=== PATIENT | female | born 1995 | race Caucasian/White ===

== ENCOUNTER 2017-02-10 19:35 | Outpatient (CLI) | payer OTHER ==
[~2017-02-10 19:35] MED LIST: BACTRIM,SEPT1 TABLET PO; CONCERTA36 MG PO; TORADOL10 MG PO
[2017-02-10 20:19] VITALS: BP 116/57
[2017-02-10 20:57] LABS: ADD MIUA? YES; BILIRUBIN NEGATIVE; BLOOD NEGATIVE; COLOR YELLOW ((YELLOW)); GLUCOSE (STRIP) NEGATIVE; KETONES NEGATIVE; LEUKOCYTES MODERATE; NITRITE NEGATIVE; PROTEIN (STRIP) NEGATIVE; SPECIFIC GRAVITY 1.027 (1.000-1.030)
[2017-02-10 21:02] LABS: BACTERIA RARE /HPF; CALCIUM OXALATE CRYSTALS 3+ /HPF; EPITHELIAL CELLS RARE /HPF; MUCUS 2+ /LPF; UCUL ADDED? NO
== END 2017-02-10 20:20 | disposition home or self-care (01) ==
LOC: LDRP-OP 19:35 → 2WEST 19:38
PROVIDERS: Midwife
DX: O26.892 Other specified pregnancy related conditions, second trimester (principal); R10.9 Unspecified abdominal pain; O99.212 Obesity complicating pregnancy, second trimester; E66.9 Obesity, unspecified; Z68.41 Body mass index [BMI] 40.0-44.9, adult; Z3A.24 24 weeks gestation of pregnancy; Z87.891 Personal history of nicotine dependence
CPT/HCPCS: 59025; 81003; G0378

== ENCOUNTER 2017-02-28 01:37 | Outpatient (CLI) | payer OTHER ==
[~2017-02-28] VITALS: Ht 171.4 cm; Wt 114.1 kg
[2017-02-28 02:04] VITALS: BP 121/56
[2017-02-28 02:48] LABS: ADD MIUA? YES; BILIRUBIN NEGATIVE; BLOOD SMALL; COLOR YELLOW ((YELLOW)); GLUCOSE (STRIP) NEGATIVE; KETONES NEGATIVE; LEUKOCYTES MODERATE; NITRITE NEGATIVE; PROTEIN (STRIP) NEGATIVE; SPECIFIC GRAVITY 1.025 (1.000-1.030); UROBILINOGEN 0.2 MG/DL (0.2-1.0)
[2017-02-28 03:03] LABS: BACTERIA NONE SEEN /HPF; EPITHELIAL CELLS 1+ /HPF; MUCUS 2+ /LPF; RED BLOOD CELLS 0-5 /HPF (0-5)
[2017-02-28 03:06] VITALS: BP 93/46
[2017-02-28 04:12] VITALS: BP 102/50
[2017-02-28 04:20] LABS: EOSINOPHIL (%) 0.6 % (0-5); EOSINOPHIL COUNT 0.1 K/uL (0-0.3); IMMATURE GRANULOCYTE (%) 0.4 % (0.0-0.7); IMMATURE GRANULOCYTE COUNT 0.1 K/uL; INSTRUMENT ABS NEUTROPHIL CT 10.7 K/uL; LYMPHOCYTE COUNT 2.1 K/uL (1.0-2.8); MCH 28.5 PG (29.0-34.0); MCHC 32.7 G/DL (30.0-36.0); MCV 87.1 FL (83-99); MEAN PLAT.VOLUME 11.1 uM^3 (9.5-12.4); MONOCYTE COUNT 0.7 K/uL (0-0.8); NEUTROPHIL (%) 78.7 % (45-76); NEUTROPHIL COUNT 10.7 K/uL (1.8-6.4); PLATELET COUNT 240 K/uL (156-360); RBC DIS.WIDTH-CV 13.1 % (11.8-14.6); RBC DIS.WIDTH-SD 41.1 % (39-53); RED BLOOD COUNT 3.79 M/uL (3.80-5.20); WHITE BLOOD COUNT 13.6 K/uL (4.1-10.2)
== END 2017-02-28 05:30 | disposition home or self-care (01) ==
LOC: LDRP-OP 01:37 → 2WEST 01:38 → LDRP-OP 06-11 22:22
PROVIDERS: Nurse Practitioner
DX: O99.89 Other specified diseases and conditions complicating pregnancy, childbirth and the puerperium (principal); M54.9 Dorsalgia, unspecified; Z3A.00 Weeks of gestation of pregnancy not specified
CPT/HCPCS: 59025; 81003; 85025; G0378

== ENCOUNTER → 2017-03-11 | Outpatient (CLI) | payer OTHER ==
[~2017-03-11] VITALS: Ht 171.4 cm; Wt 114.0 kg
[2017-03-11 14:13] VITALS: BP 118/55
== END | disposition home or self-care (01) ==
LOC: IVINF 03-03 10:00
DX: Z31.82 Encounter for Rh incompatibility status (principal); Z3A.29 29 weeks gestation of pregnancy; Z67.41 Type O blood, Rh negative
CPT/HCPCS: 96372; J2790

== ENCOUNTER 2017-05-17 02:06 | Outpatient (CLI) | payer OTHER ==
[~2017-05-17] VITALS: Ht 167.6 cm; Wt 118.8 kg
[2017-05-17 02:29] VITALS: BP 128/62
[2017-05-17] MEDS ORDERED: TYLENOL EXTRA500 MG PO (02:46)
[2017-05-17 03:31] VITALS: BP 118/58
== END 2017-05-17 04:00 | disposition home or self-care (01) ==
LOC: LDRP-OP 02:06 → 2WEST 02:07 → LDRP-OP 06-11 05:43
DX: O36.8190 Decreased fetal movements, unspecified trimester, not applicable or unspecified (principal); Z3A.00 Weeks of gestation of pregnancy not specified
CPT/HCPCS: 59025; G0378

== ENCOUNTER 2017-05-21 13:41 | Outpatient (CLI) | payer OTHER ==
[~2017-05-21 13:41] MED LIST changes: +TYLENOL EXTRA500 MG PO
[2017-05-21 14:03] VITALS: BP 154/91
[2017-05-21 14:38] VITALS: BP 135/60
[2017-05-21 15:31] VITALS: BP 111/56
== END 2017-05-21 17:40 | disposition home or self-care (01) ==
LOC: LDRP-OP 13:41 → 2WEST 13:42 → LDRP-OP 06-11 05:56
DX: O47.1 False labor at or after 37 completed weeks of gestation (principal); Z3A.39 39 weeks gestation of pregnancy; Z87.891 Personal history of nicotine dependence
CPT/HCPCS: 59025; G0378

== ENCOUNTER 2017-05-22 16:15 | Outpatient (CLI) | payer OTHER ==
[~2017-05-22] VITALS: Ht 170.2 cm; Wt 125.4 kg
[2017-05-22 16:47] VITALS: BP 105/59
[2017-05-22 18:37] VITALS: BP 138/81
[2017-05-23] MEDS ORDERED: IBUPROFEN800 MG PO (11:06)
== END 2017-05-22 19:30 | disposition home or self-care (01) ==
LOC: LDRP-OP 16:15 → 2WEST 16:17 → LDRP-OP 06-11 18:31
DX: O47.1 False labor at or after 37 completed weeks of gestation (principal); Z3A.39 39 weeks gestation of pregnancy; O99.213 Obesity complicating pregnancy, third trimester; E66.9 Obesity, unspecified; Z68.41 Body mass index [BMI] 40.0-44.9, adult
CPT/HCPCS: 59025; G0378

== ENCOUNTER 2017-05-22 23:15 | Inpatient (IN) | payer OTHER ==
[~2017-05-22] VITALS: Ht 172.7 cm; Wt 125.0 kg
[2017-05-22 23:34] VITALS: BP 132/83
[2017-05-23] VITALS (31 sets, daily range): BP systolic 116–178; BP diastolic 58–104
[2017-05-23 01:59] LABS: EOSINOPHIL (%) 0.7 % (0-5); EOSINOPHIL COUNT 0.1 K/uL (0-0.3); HEMATOCRIT 32.7 % (36.0-46.0); IMMATURE GRANULOCYTE (%) 0.4 % (0.0-0.7); IMMATURE GRANULOCYTE COUNT 0.1 K/uL; INSTRUMENT ABS NEUTROPHIL CT 9.6 K/uL; LYMPHOCYTE COUNT 2.5 K/uL (1.0-2.8); MCH 27.6 PG (29.0-34.0); MCHC 32.7 G/DL (30.0-36.0); MCV 84.5 FL (83-99); MEAN PLAT.VOLUME 12.1 uM^3 (9.5-12.4); MONOCYTE (%) 8.2 % (3-12); MONOCYTE COUNT 1.1 K/uL (0-0.8); NEUTROPHIL (%) 71.6 % (45-76); NEUTROPHIL COUNT 9.6 K/uL (1.8-6.4); PLATELET COUNT 215 K/uL (156-360); RBC DIS.WIDTH-CV 16.7 % (11.8-14.6); RBC DIS.WIDTH-SD 50.7 % (39-53); RED BLOOD COUNT 3.87 M/uL (3.80-5.20); WHITE BLOOD COUNT 13.4 K/uL (4.1-10.2)
[2017-05-23] MEDS ORDERED: IBUPROFEN800 MG PO (11:06)
[2017-05-24 07:40] VITALS: BP 140/79
[2017-05-24 12:03] VITALS: BP 134/87
[2017-05-24 15:00] VITALS: BP 143/91
[2017-05-24 22:41] VITALS: BP 136/85
[2017-05-25 07:32] VITALS: BP 136/78
[2017-05-25 14:49] VITALS: BP 142/77
== END 2017-05-25 18:07 | disposition home or self-care (01) | DRG 775 ==
LOC: LDRP-OP 23:15 → 2WEST 23:16 → LDRP-OP 06-11 21:07
PROVIDERS: Midwife
DX: O70.0 First degree perineal laceration during delivery (principal); O69.81X0 Labor and delivery complicated by cord around neck, without compression, not applicable or unspecified; O69.82X0 Labor and delivery complicated by other cord entanglement, without compression, not applicable or unspecified; O99.344 Other mental disorders complicating childbirth; F32.9 Major depressive disorder, single episode, unspecified; F41.9 Anxiety disorder, unspecified; O99.214 Obesity complicating childbirth; E66.01 Morbid (severe) obesity due to excess calories; Z68.41 Body mass index [BMI] 40.0-44.9, adult; Z3A.39 39 weeks gestation of pregnancy; Z37.0 Single live birth
CPT/HCPCS: 59025; 85025; C1755; G0378; J0595; J3010; J7120

== ENCOUNTER 2017-08-11 22:00 | Emergency (ER) | payer OTHER ==
[~2017-08-11] VITALS: Ht 172.7 cm; Wt 117.1 kg
[~2017-08-11 22:00] MED LIST changes: +IBUPROFEN800 MG PO
[2017-08-12] MEDS ORDERED: MEDROL DOSEPAK4 MG PO (01:33)
[2017-08-12 01:45] VITALS: BP 142/73
== END 2017-08-12 01:57 | disposition home or self-care (01) ==
LOC: EME 22:00
DX: B00.2 Herpesviral gingivostomatitis and pharyngotonsillitis (principal); T36.0X5A Adverse effect of penicillins, initial encounter; F90.9 Attention-deficit hyperactivity disorder, unspecified type; Z87.891 Personal history of nicotine dependence
CPT/HCPCS: 99281; 99284; J7512

== ENCOUNTER 2017-08-21 20:44 | Emergency (ER) | payer OTHER ==
[~2017-08-21] VITALS: Ht 172.7 cm; Wt 116.3 kg
[~2017-08-21 20:44] MED LIST changes: +MEDROL DOSEPAK4 MG PO
[2017-08-21 21:30] LABS: HEMATOCRIT 35.7 % (36.0-46.0); MCH 26.7 PG (29.0-34.0); MCHC 31.7 G/DL (30.0-36.0); MCV 84.4 FL (83-99); MEAN PLAT.VOLUME 10.3 uM^3 (9.5-12.4); PLATELET COUNT 320 K/uL (156-360); RBC DIS.WIDTH-CV 15.1 % (11.8-14.6); RBC DIS.WIDTH-SD 46.2 % (39-53); RED BLOOD COUNT 4.23 M/uL (3.80-5.20); WHITE BLOOD COUNT 8.3 K/uL (4.1-10.2)
[2017-08-21 21:41] LABS: CHLORIDE 109 mEq/L (99-109); POTASSIUM 3.8 mEq/L (3.7-5.4); SODIUM 141 mEq/L (136-147)
[2017-08-21 21:43] LABS: GLUCOSE 106 mg/dL (70-99)
[2017-08-21 21:44] LABS: ANION GAP 10 MEQ/L (2-14)
[2017-08-21 21:45] LABS: TOTAL BILIRUBIN 0.5 mg/dL (0.0-1.0)
[2017-08-21 21:47] LABS: ALKALINE PHOSPHATASE 67 IU/L (3-129); GFR ESTIMATE (CALCULATED) > 59 mL/min/
[2017-08-21 21:48] LABS: UREA NITROGEN (BUN) 12 mg/dL (9-23)
[2017-08-21 21:56] LABS: QUANTITATIVE HCG < 4.0 MIU/ML
[2017-08-21 23:18] VITALS: BP 110/79
== END 2017-08-21 23:19 | disposition home or self-care (01) ==
LOC: EME 20:44
DX: R10.32 Left lower quadrant pain (principal); F17.200 Nicotine dependence, unspecified, uncomplicated
CPT/HCPCS: 80053; 81003; 84702; 85027; 99281; 99284